=== PATIENT | female | born 1995 | race Caucasian/White ===

== ENCOUNTER 2020-10-19 17:29 | Emergency (ER) | payer SELFPAY ==
[2020-10-19 18:47] LABS: HEMOGLOBIN 12.1 gm/dl (12.3-15.3); RED BLOOD COUNT 4.89 M/UL (4.00-5.10); WHITE BLOOD COUNT 16.4 K/UL (4.5-11.0)
[2020-10-19 19:15] LABS: BUN/CREATININE RATIO 15 (0-10)
[2020-10-19] MEDS ORDERED: AUGMENTIN 875-1 EACH PO (22:14)
[2020-10-19] MEDS ORDERED: ZOFRAN ODT 4 MG4 MG SL (22:14)
[2020-10-19] MEDS ORDERED: HYDROCODON-ACE1 EAC4 PO (22:14)
[2020-10-19] MEDS ORDERED: IBU800 MG PO (23:58)
== END 2020-10-20 00:01 | disposition home or self-care (01) ==
LOC: ER1 17:29
PROVIDERS: Physician Assistant
DX: K81.9 Cholecystitis, unspecified (principal); F17.200 Nicotine dependence, unspecified, uncomplicated
CPT/HCPCS: 80053; 81001; 82150; 83690; 84703; 85025; 96374; 96375; 99284; J1885; J2270; J2405; Q9967